=== PATIENT | male | born 1965 | race Caucasian/White ===

== ENCOUNTER 2016-08-31 20:39 | Emergency (ER) | payer BC ==
[2016-09-01 02:20] LABS: HEMOGLOBIN 15.5 gm/dl (14.0-17.5); RED BLOOD COUNT 3.95 M/UL (4.20-5.50); WHITE BLOOD COUNT 10.5 K/UL (4.5-11.0)
[2016-09-01 02:31] LABS: BUN/CREATININE RATIO 11 (0-10)
== END 2016-09-01 06:29 | disposition home or self-care (01) ==
LOC: ER1 20:39
PROVIDERS: Family Medicine
DX: R10.813 Right lower quadrant abdominal tenderness (principal); I10 Essential (primary) hypertension; F17.210 Nicotine dependence, cigarettes, uncomplicated
CPT/HCPCS: 36415; 80053; 81001; 82150; 83690; 85025; 96361; 96374; 96375; 99284; C9113; J2270; J2405; J7030; J7050; Q9962

== ENCOUNTER 2016-10-08 02:53 | Emergency (ER) | payer BC | END 2016-10-08 07:35 | disposition home or self-care (01) | LOC: ER1 02:53 | DX: S82.832A Other fracture of upper and lower end of left fibula, initial encounter for closed fracture (principal); W01.0XXA Fall on same level from slipping, tripping and stumbling without subsequent striking against object, initial encounter | CPT/HCPCS: 73564; 73590; 73610; 99283 ==

== ENCOUNTER → 2016-10-10 | Outpatient (CLI) | payer BC | LOC: EMI 13:04 → KOH-I 13:04 → EMI 15:00 | DX: I73.9 Peripheral vascular disease, unspecified (principal); S82.002A Unspecified fracture of left patella, initial encounter for closed fracture; S82.832A Other fracture of upper and lower end of left fibula, initial encounter for closed fracture; S83.242D Other tear of medial meniscus, current injury, left knee, subsequent encounter | CPT/HCPCS: 73721; 93926 ==

== ENCOUNTER → 2016-10-16 | Outpatient (CLI) | payer BC | LOC: KOH-I 13:08 | DX: I82.402 Acute embolism and thrombosis of unspecified deep veins of left lower extremity (principal) | CPT/HCPCS: 93971 ==

== ENCOUNTER → 2020-08-08 | Outpatient (CLI) | payer OTHER ==
[~2020-08-08] MED LIST: ASPIRIN CHEWABL81 MG PO; NITROSTAT0.4 MG SL
== END ==
LOC: KOH-I 16:40
DX: M79.662 Pain in left lower leg (principal); W01.198A Fall on same level from slipping, tripping and stumbling with subsequent striking against other object, initial encounter
CPT/HCPCS: 73590

== ENCOUNTER → 2020-11-22 | Outpatient (CLI) | payer MEDICARE, OTHER | LOC: KOH-I 12:18 | DX: M54.2 Cervicalgia (principal) | CPT/HCPCS: 73030 ==

== ENCOUNTER 2021-10-22 02:01 | Emergency (ER) | payer MEDICARE, OTHER ==
[2021-10-22 02:19] LABS: HEMOGLOBIN 11.5 gm/dl (14.0-17.5); RED BLOOD COUNT 3.45 M/UL (4.20-5.50); WHITE BLOOD COUNT 8.8 K/UL (4.5-11.0)
[2021-10-22 02:39] LABS: BUN/CREATININE RATIO 14 (0-10)
== END 2021-10-22 05:19 | disposition home or self-care (01) ==
LOC: ER1 02:01
PROVIDERS: Emergency Medicine
DX: S00.83XA Contusion of other part of head, initial encounter (principal); E87.6 Hypokalemia; F10.129 Alcohol abuse with intoxication, unspecified; Y90.6 Blood alcohol level of 120-199 mg/100 ml; F17.200 Nicotine dependence, unspecified, uncomplicated; W19.XXXA Unspecified fall, initial encounter
CPT/HCPCS: 70450; 71045; 72125; 80053; 82550; 82553; 82962; 84484; 85025; 93005; 96360; 96361; 99285; G0480